=== PATIENT | female | born 1985 | race Caucasian/White ===

== ENCOUNTER 2018-09-06 07:41 | Emergency (ER) | payer OTHER ==
[2018-09-06] MEDS: PROMETHAZINE/DM (CUP) PO (08:49)
== END 2018-09-06 08:59 | disposition home or self-care (01) ==
LOC: FTE 07:41
DX: J06.9 Acute upper respiratory infection, unspecified (principal); I10 Essential (primary) hypertension; J45.909 Unspecified asthma, uncomplicated
CPT/HCPCS: 71046; 99283-25